=== PATIENT | female | born 1995 ===

== ENCOUNTER 2016-10-22 15:52 | Emergency (ER) | payer SELFPAY ==
[2016-10-22 16:28] VITALS: RESP 18; TEMP 98.5
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
--- NOTE | 2016-10-22 17:09 | RAD ---
PROCEDURE: Left Hand Radiographs. HISTORY: injury COMPARISON: None. FINDINGS: BONES: Acute fracture at the base of the proximal phalanx of the 4th finger extending to the articular surface of the metacarpophalangeal joint. JOINTS: Normal. No osteoarthritic changes. SOFT TISSUES: Soft tissue swelling seen at the 4th finger. OTHER FINDINGS: None. IMPRESSION: Acute fracture at the base of the proximal phalanx of the 4th finger.
[2016-10-22 17:23] VITALS: BP 108/70; PULSE 73; O2SAT 99
== END 2016-10-22 17:23 | disposition home or self-care (01) ==
LOC: C.ER 15:52
DX: S62.615A Displaced fracture of proximal phalanx of left ring finger, initial encounter for closed fracture (principal); Y09 Assault by unspecified means

== ENCOUNTER 2017-03-07 17:10 | Emergency (ER) | payer OTHER ==
[2017-03-07 17:57] VITALS: BMI 24.0
[2017-03-07 18:00] VITALS: BP 105/70; PULSE 84; RESP 16; TEMP 98.3; O2SAT 98
[2017-03-07 18:17] LABS: RBC URINE < 1 /hpf (0-3); URINE BACTERIA RARE (<OCC); URINE BILIRUBIN NEGATIVE (NEGATIVE); URINE BLOOD NEGATIVE (NEGATIVE); URINE COLOR Straw (YELLOW); URINE GLUCOSE (UA) NORMAL (Normal); URINE KETONE NEGATIVE (NEGATIVE); URINE LEUKOCYTE ESTERASE NEG Leu/uL (Negative); URINE PROTEIN NEGATIVE (NEGATIVE); URINE UROBILINOGEN NORMAL mg/dL (0.2-1.0); WBC URINE 1 /hpf (0-5)
[2017-03-07 19:22] LABS: BASO % 0.4 % (0.0-2.0); EOS % 0.2 % (0.0-4.0); HEMATOCRIT 38.1 % (34.0-47.0); LYMPH # 2.1 K/uL (1.0-4.3); LYMPH % 32.2 % (20.0-40.0); MEAN CELL VOLUME 94.3 fL (81.0-99.0); MEAN CORPUSCULAR HEMOGLOBIN 32.3 pg (27.0-31.0); MEAN CORPUSCULAR HGB CONC 34.2 g/dL (33.0-37.0); MEAN PLATELET VOLUME 8.3 fL (7.2-11.7); MONO # 0.5 K/uL (0.0-0.8); MONO % 8.4 % (0.0-10.0); NRBC % 0.1 % (0.0-2.0); WHITE BLOOD COUNT 6.4 K/uL (4.8-10.8)
[2017-03-07 19:37] LABS: ALB/GLOB RATIO 1.5 (1.0-2.1); ALKALINE PHOSPHATASE 69 U/L (38-126); ALT/SGPT 80 U/L (9-52); AST/SGOT 56 U/L (14-36); BILIRUBIN,TOTAL 1.3 mg/dL (0.2-1.3); BLOOD UREA NITROGEN 6 mg/dL (7-17); CALCIUM 8.6 mg/dl (8.6-10.4); CARBON DIOXIDE 24 mmol/L (22-30); CHLORIDE 101 mmol/L (98-107); GFR AFRICAN-AMERICAN > 60; GLUCOSE,RANDOM 78 mg/dL (65-105); POTASSIUM 3.6 mmol/L (3.6-5.2); SODIUM 131 mmol/L (132-148); TOTAL PROTEIN 7.2 g/dL (6.3-8.3)
--- NOTE | 2017-03-07 19:48 | C.PDOC ---
History Of Present Illness 21 year old female presents to the ED c/o lower abdominal pain that she describes as" pulling" that started yesterday. Patient's LMP was on February 03 lasted until Feb 07, was supposed to get her period on Mar 06 but she did not. Patient reports she felt the pain and decided to take home test which came back positive, has not seen her SECURITIES ANALYST yet. Patient denies nausea, vomit, diarrhea, dysuria, back pain. Time Seen by Provider: 03/07/17 18:19 Chief Complaint (Nursing): Female Genitourinary History Per: Patient History/Exam Limitations: no limitations Onset/Duration Of Symptoms: Hrs Current Symptoms Are (Timing): Still Present Quality Of Discomfort: Other (Pulling) Associated Symptoms: denies: Fever, Nausea, Vomiting, Back Pain Recent travel outside of the [place]: No Additional History Per: Patient Abnormal Vaginal Bleeding: No Last Menstral Period: 02/03/17 Past Medical History Reviewed: Historical Data, Nursing Documentation, Vital Signs Vital Signs: Last Vital Signs Temp 98.3 F 03/07/17 17:57 Pulse 84 03/07/17 17:57 Resp 16 03/07/17 17:57 BP 105/70 03/07/17 17:57 Pulse Ox 98 03/07/17 21:53 - Medical History PMH: No Chronic Diseases Surgical History: No Surg Hx Family History: States: Unknown Family Hx - Social History Hx Alcohol Use: No Hx Substance Use: No - Immunization History Hx Tetanus Toxoid Vaccination: No Hx Influenza Vaccination: No Hx Pneumococcal Vaccination: No Review Of Systems Constitutional: Negative for: Fever, Chills Cardiovascular: Negative for: Chest Pain Respiratory: Negative for: Cough, Shortness of Breath Gastrointestinal: Positive for: Abdominal Pain (Lower). Negative for: Nausea, Vomiting Genitourinary: Negative for: Dysuria, Vaginal Discharge, Vaginal Bleeding Musculoskeletal: Negative for: Back Pain Skin: Negative for: Rash Neurological: Negative for: Weakness, Numbness Physical Exam - Physical Exam Appears: Non-toxic, No Acute Distress Skin: Normal Color, Warm, Dry Head: Atraumatic, Normacephalic Oral Mucosa: Moist Neck: Normal ROM, Supple Chest: Symmetrical Cardiovascular: Rhythm Regular, No Murmur Respiratory: Normal Breath Sounds, No Rales, No Rhonchi, No Wheezing Gastrointestinal/Abdominal: Soft, Tenderness (Mild superpubic ), No Distention, No Guarding, No Rebound, Other (Mild pelvic tenderness) Back: No CVA Tenderness Extremity: Normal ROM, No Deformity, No Swelling Neurological/Psych: Oriented x3, Normal Speech, Normal Cognition Gait: Steady ED Course And Treatment - Laboratory Results Result Diagrams: 03/07/17 19:17 03/07/17 19:17 O2 Sat by Pulse Oximetry: 98 (On RA) Pulse Ox Interpretation: Normal - CT Scan/US Transvaginal US Other Rad Studies (CT/US): Interpreted By Me, Read By Radiologist, Radiology Report Reviewed CT/US Interpretation: IMPRESSION: No intrauterine gestation is identified on the current examination. Please correlate these findings with the serum beta- hCG, with short term. followup (and serial beta-hCG) recommended. Medical Decision Making Medical Decision Making: Plan: * Blood work ordered * UA ordered * Urine culture collected * OB transvaginal US ordered Re-evaluation : pt comfortable in ED, explained to return to ED in 2 days for repeat sono and blood work Disposition Counseled Patient/Family Regarding: Studies Performed, Diagnosis, Need For Followup, Rx Given - Disposition Referrals: [facility] [Outside] [facility] [Outside] Disposition: HOME/ ROUTINE Disposition Time: 22:17 Condition: STABLE Additional Instructions: Erendira un seguimiento en el servicio de urgencias en 2 rodriguez para deanna ecografa previa y repita la prueba de adalid BHCG. Ests en las primeras etapas del embarazo; nada se ve todava en el tero. Erendira deanna saud con oliva gyecologist para la atencin . Regrese a urgencias inmediatamente para cualquier dolor abdominal que empeore, mareos desmayos, sangrado vaginal o cualquier otra preocupacin. Follow up in the ED in 2 days for a prepeat sonogram and repeat BHCG blood test. You are in early stages of ; nothing is seen in the uterus yet. Make an appointment with your gyecologist for pre- care. Return to ER right away for any worsening abdominal pain, dizziness fainting, vaginal bleeding or any other concerns. Instructions: Abdominal Pain in (ED) Forms: [facility] (German), Gen Discharge Inst German - Clinical Impression Clinical Impression: Early stage of - PA / SIGNAL ENGINEER / Resident Statement MD/DO has reviewed & agrees with the documentation as recorded. - Scribe Statement The provider has reviewed the documentation as recorded by the Scribe Shyam Blake All medical record entries made by the Scribe were at my direction and personally dictated by me. I have reviewed the chart and agree that the record accurately reflects my personal performance of the history, physical exam, medical decision making, and the department course for this patient. I have also personally directed, reviewed, and agree with the discharge instructions and disposition.
--- NOTE | 2017-03-07 21:43 | US ---
EXAM: US Pelvis Complete, Transabdominal US Pelvis, Transvaginal CLINICAL HISTORY: 21 years old, female; Pain; Pelvic pain; Patient HX: Beta 1586.60; Additional info: Bilateral pelvic pain right more than left TECHNIQUE: Real-time transabdominal and transvaginal pelvic ultrasound (complete) with image documentation. Transvaginal imaging was used for better evaluation of the endometrium and adnexa. COMPARISON: No relevant prior studies available. FINDINGS: Uterus/cervix: Unremarkable in echogenicity and size measuring 10.1 x 4.9 x 5.7 cm. The endometrial stripe measures 11 mm. The cervix measures 3.3 cm, and is closed. No intrauterine gestation is identified. No myometrial mass. Right ovary: Unremarkable in echogenicity and size measuring 4.5 x 2.9 x 2.9 cm. No mass. Normal blood flow. Left ovary: Unremarkable in echogenicity and size measuring 3.2 x 2.1 x 2.0 cm. No mass. Normal blood flow. Free fluid: No free fluid. IMPRESSION: No intrauterine gestation is identified on the current examination. Please correlate these findings with the serum beta-hCG, with short term followup (and serial beta-hCG) recommended.
== END 2017-03-07 22:34 | disposition home or self-care (01) ==
LOC: C.ER 17:10
DX: O26.891 Other specified pregnancy related conditions, first trimester (principal); Z3A.00 Weeks of gestation of pregnancy not specified

== ENCOUNTER 2017-03-10 14:30 | Emergency (ER) | payer OTHER ==
[2017-03-10 14:30] VITALS: BMI 24.0
[2017-03-10 15:03] VITALS: RESP 18; O2SAT 100
--- NOTE | 2017-03-10 15:10 | C.PDOC ---
History Of Present Illness Marisel is a 21 year old who presents for repeat Beta-HCG and sonogram. Patient was seen here 2 days ago for abdominal pain, was found to be , but no gestational sac was identified. She denies any medical complaints at this time. No vomiting or vaginal bleeding. PMD: None provided Time Seen by Provider: 03/10/17 15:09 Chief Complaint (Nursing): Medical Clearance History Per: Patient History/Exam Limitations: no limitations Current Symptoms Are (Timing): Gone Reports Recently: Seen In ED Additional History Per: Prior Records Past Medical History Reviewed: Historical Data, Nursing Documentation, Vital Signs Vital Signs: Last Vital Signs Temp 98.1 F 03/10/17 17:20 Pulse 76 03/10/17 17:20 Resp 18 03/10/17 17:20 BP 112/64 03/10/17 17:20 Pulse Ox 100 03/10/17 17:25 - Medical History PMH: No Chronic Diseases Surgical History: No Surg Hx Family History: States: Unknown Family Hx - Social History Hx Alcohol Use: No Hx Substance Use: No - Immunization History Hx Tetanus Toxoid Vaccination: No Hx Influenza Vaccination: No Hx Pneumococcal Vaccination: No Review Of Systems Except As Marked, All Systems Reviewed And Found Negative. Gastrointestinal: Negative for: Abdominal Pain Genitourinary: Negative for: Vaginal Bleeding Physical Exam - Physical Exam Appears: Well, Non-toxic, No Acute Distress Skin: Normal Color, Warm, Dry Head: Atraumatic, Normacephalic Eye(s): bilateral: Normal Inspection, PERRL, EOMI Nose: Normal Neck: Normal, Normal ROM, Supple Cardiovascular: Rhythm Regular Respiratory: Normal Breath Sounds, No Accessory Muscle Use Gastrointestinal/Abdominal: Normal Exam, Soft, No Tenderness Extremity: Bilateral: Atraumatic, Normal Color And Temperature Neurological/Psych: Oriented x3, Normal Speech ED Course And Treatment O2 Sat by Pulse Oximetry: 100 (RA) Pulse Ox Interpretation: Normal Medical Decision Making Medical Decision Making: Time: 15:11 Initial Impression: 21 year old female here for repeat beta HCG and ultrasound Initial Plan: * Beta-HCG quantitative * Pending OB Transvaginal Ultrasound Repeat beta-HCG is 7636.70 Time: 16:13 US OB Transvaginal : FINDINGS: UTERUS: Measures 9.3 x 4.7 x 4.8 cm. Uses enlarged and appears anteverted without focal myometrial lesion appreciable grossly. No fibroid or other mass lesion seen. ENDOMETRIUM: Fluid collection is identified within the endometrial cavity measuring a mean diameter 0.7 cm within apparent associated decidual reaction. No pole yolk sac is identified within this fluid. This may represent an early viable intrauterine gestation of less than 5 weeks. This agrees with LMP derived gestational age in general. demise is the differential diagnosis. Clinically correlate further. CERVIX: A nabothian cyst is identified in the anterior cervix with the cervix measuring 3.5 cm. RIGHT OVARY: Measures 3.0 x 2.3 x 2.8 cm. No solid mass. Normal flow. LEFT OVARY: Measures 3.0 x 1.8 x 2.3 cm. No solid mass. Normal flow. FREE FLUID: No significant free fluid noted. OTHER FINDINGS: None. IMPRESSION: An intrauterine fluid collection is appreciate without yolk sac, and membrane or pole identified at this time. Based on mean sac diameter, this may represent early viable intrauterine gestation less than 5 weeks estimated gestational age. This is not proven and differential diagnosis is failure of gestation. Follow-up serial beta HCG analysis is recommended as well as 1 week follow-up pelvic ultrasound transvaginal. Please see discussion above. Disposition Counseled Patient/Family Regarding: Studies Performed, Diagnosis, Need For Followup, Rx Given - Disposition Referrals: [facility] [Outside] Disposition: HOME/ ROUTINE Disposition Time: 17:17 Condition: STABLE Additional Instructions: FOLLOW UP WITH YOUR THREAD SEPARATOR IN 1 WEEK FOR REPEAT BhCG AND SONOGRAM. IF ABDOMINAL PAIN, VAGINAL BLEEDING OR ANY CONCERNING SYMPTOMS DEVELOP RETURN TO ED. Prescriptions: Multivit/Folic Acid/I [ Plus] 1 tab PO DAILY #30 tab Instructions: First Trimester (ED) Forms: [employer] Connect (Syrian), Gen Discharge Inst Turkmen Print Language: SAMI - Clinical Impression Clinical Impression: Early stage of - PA / AIRPORT OPERATIONS OFFICER / Resident Statement MD/DO has reviewed & agrees with the documentation as recorded. - Scribe Statement The provider has reviewed the documentation as recorded by the Matilde Dixon All medical record entries made by the Venusibeliza were at my direction and personally dictated by me. I have reviewed the chart and agree that the record accurately reflects my personal performance of the history, physical exam, medical decision making, and the department course for this patient. I have also personally directed, reviewed, and agree with the discharge instructions and disposition.
--- NOTE | 2017-03-10 16:15 | US ---
HISTORY: ABDOMINAL PAIN ; last menstrual period is reported 02/03/2017 suggesting of 5 weeks 0 day estimated gestational age. COMPARISON: None available. TECHNIQUE: Transvaginal pelvic ultrasound was performed with longitudinal and transverse images submitted for interpretation. FINDINGS: UTERUS: Measures 9.3 x 4.7 x 4.8 cm. Uses enlarged and appears anteverted without focal myometrial lesion appreciable grossly. No fibroid or other mass lesion seen. ENDOMETRIUM: Fluid collection is identified within the endometrial cavity measuring a mean diameter 0.7 cm within apparent associated decidual reaction. No pole yolk sac is identified within this fluid. This may represent an early viable intrauterine gestation of less than 5 weeks. This agrees with LMP derived gestational age in general. demise is the differential diagnosis. Clinically correlate further. CERVIX: A nabothian cyst is identified in the anterior cervix with the cervix measuring 3.5 cm. RIGHT OVARY: Measures 3.0 x 2.3 x 2.8 cm. No solid mass. Normal flow. LEFT OVARY: Measures 3.0 x 1.8 x 2.3 cm. No solid mass. Normal flow. FREE FLUID: No significant free fluid noted. OTHER FINDINGS: None. IMPRESSION: An intrauterine fluid collection is appreciate without yolk sac, and membrane or pole identified at this time. Based on mean sac diameter, this may represent early viable intrauterine gestation less than 5 weeks estimated gestational age. This is not proven and differential diagnosis is failure of gestation. Follow-up serial beta HCG analysis is recommended as well as 1 week follow-up pelvic ultrasound transvaginal. Please see discussion above.
[2017-03-10 17:20] VITALS: BP 112/64; PULSE 76; TEMP 98.1
== END 2017-03-10 17:33 | disposition home or self-care (01) ==
LOC: C.ER 14:30
DX: O26.891 Other specified pregnancy related conditions, first trimester (principal); R10.9 Unspecified abdominal pain; Z3A.01 Less than 8 weeks gestation of pregnancy

== ENCOUNTER 2017-07-04 19:58 | Emergency (ER) | payer MEDICAID, OTHER ==
--- NOTE | 2017-07-04 20:23 | OBHP ---
Datetime: 07/04/2017 20:18 IP Adm Impression: , intrauterine IP Chief Complaint Other: vaginal discharge for 1week IP Admit Plan: Discharge home Admit Comment, IP Provider: at 21.4weeks came with c/o vaginal discharge with itching and irrta tiin x 1 week,no ctxs,vb,+fm obhx primi pmh den med pnv all nkda psh den soch de a/p at 21+weeks vaginitis dc home flagyl x 7 days terazol no sex po hy f/u in as schuled Pelvic Type - PN: Adequate Extremities - PN: Normal Abdomen - PN: Normal Back - PN: Normal Breast - PN: Normal Lungs - PN: Normal Heart - PN: Normal Thyroid - PN: Normal Neurologic - PN: Normal HEENT - PN: Normal General - PN: Normal FHR - Baseline A Provider: 140 Contraction Comments Provider: none Comments, ACOG Physical Exam: gravid,non ten sse clttage chesy disc,no cmt, yelowish doisc Vital Signs Provider: Reviewed; Within Normal Limits NICHD Variability Prov Fetus A: Moderate 6-25bpm Dilatation, Provider: 0 Effacement, Provider: 0 Station, Provider: -3 Genitourinary Exam: Normal DTRs - PN: Normal
--- NOTE | 2017-07-04 20:25 | OBDCSUM ---
Datetime: 07/04/2017 20:22 Discharged to, Provider: Home Follow up at, Provider: july 10 Follow up in weeks, Provider: clinic Disch Activity Restrictions: No sexual activity; Nothing in vagina - [place], tampons, douche Discharge Comment, Provider: dc home flagyl x 7 days terazol no sex po hy f/u in as schuled Discharge Diagnosis Prov Other: 21week vaginitis
[2017-07-05 12:06] VITALS: BP 115/62; PULSE 78; RESP 18; TEMP 98; O2SAT 99
== END 2017-07-04 21:00 | disposition home or self-care (01) ==
LOC: C.EROB 19:58
DX: O23.592 Infection of other part of genital tract in pregnancy, second trimester (principal); N76.0 Acute vaginitis; Z3A.21 21 weeks gestation of pregnancy

== ENCOUNTER 2017-11-14 20:29 | Emergency (ER) | payer MEDICAID, OTHER ==
[2017-11-14 20:48] VITALS: BMI 28.0
--- NOTE | 2017-11-14 21:14 | OBHP ---
Datetime: 11/14/2017 21:08 IP Adm Impression: Term, intrauterine IP Chief Complaint Other: vaginal spotting IP Admit Plan: Discharge home Admit Comment, IP Provider: at 40.4wek came with c/o spotting in the evening.pt had sex yesterd y,no ctxs, no lof+fm obhx primi pmgh den med pnv all nkda psh de soch den sse no blod ve ft/50/-3 a/p at 40+weeks false labor dc home labor given induction on 11/15/17 at 7 pm Pelvic Type - PN: Adequate Extremities - PN: Normal Abdomen - PN: Normal Back - PN: Normal Breast - PN: Normal Lungs - PN: Normal Heart - PN: Normal Thyroid - PN: Normal Neurologic - PN: Normal HEENT - PN: Normal General - PN: Normal FHR - Baseline A Provider: 130 Contraction Comments Provider: occ Vital Signs Provider: Reviewed; Within Normal Limits NICHD Variability Prov Fetus A: Moderate 6-25bpm NICHD Accel Fetus A IP Provider: 15X15 FHR Category Provider Fetus A: Category I Dilatation, Provider: ft Effacement, Provider: 50 Station, Provider: -3 Genitourinary Exam: Normal DTRs - PN: Normal
--- NOTE | 2017-11-14 21:16 | OBDCSUM ---
Datetime: 11/14/2017 21:12 Discharged to, Provider: Home Follow up at, Provider: Clinic Disch Instr Activity: Normal activity Disch Instr Diet: Regular Discharge Time: 11/14/2017 21:12 Follow up in weeks, Provider: clinic Disch Referrals: None Disch Activity Restrictions: No sexual activity; Nothing in vagina - [place], tampons, douche Discharge Comment, Provider: dc home labor given induction on 11/15/17 at 7 pm Discharge Diagnosis Prov Other: false labor 40week
[2017-11-15 01:26] VITALS: BP 120/64; PULSE 96; RESP 18; TEMP 98.5
== END 2017-11-14 21:19 | disposition home or self-care (01) ==
LOC: C.EROB 20:29
DX: O47.1 False labor at or after 37 completed weeks of gestation (principal); Z3A.40 40 weeks gestation of pregnancy

== ENCOUNTER 2017-11-15 07:14 | Inpatient (IN) | payer MEDICAID ==
[2017-11-14 20:48] VITALS: BMI 28.0
[2017-11-15] MEDS ORDERED: Lactated Ringer's 1,000 ML IV SCH (19:35)
[2017-11-15 20:54] LABS: BASO % 0.1 % (0.0-2.0); EOS % 0.2 % (0.0-4.0); HEMOGLOBIN 12.7 g/dL (11.0-16.0); LYMPH # 1.8 K/uL (1.0-4.3); LYMPH % 21.5 % (20.0-40.0); MEAN CELL VOLUME 96.7 fL (81.0-99.0); MEAN CORPUSCULAR HEMOGLOBIN 34.1 pg (27.0-31.0); MEAN CORPUSCULAR HGB CONC 35.3 g/dL (33.0-37.0); MEAN PLATELET VOLUME 9.5 fL (7.2-11.7); MONO # 0.6 K/uL (0.0-0.8); MONO % 7.6 % (0.0-10.0); NEUT # 5.8 K/uL (1.8-7.0); NEUT % 70.6 % (50.0-75.0); NRBC % 0.1 % (0.0-2.0); RBC 3.73 Mil/uL (3.80-5.20); RED CELL DISTRIBUTION WIDTH 13.7 % (11.5-14.5); WHITE BLOOD COUNT 8.1 K/uL (4.8-10.8)
[2017-11-15 20:59] LABS: SQUAMOUS EPITHIAL 1 /hpf (0-5); URINE BACTERIA RARE (<OCC); URINE BILIRUBIN NEGATIVE (NEGATIVE); URINE BLOOD NEGATIVE (NEGATIVE); URINE CLARITY Clear (Clear); URINE COLOR Yellow (YELLOW); URINE GLUCOSE (UA) NORMAL (Normal); URINE LEUKOCYTE ESTERASE NEG Leu/uL (Negative); URINE PROTEIN NEGATIVE (NEGATIVE); URINE UROBILINOGEN NORMAL mg/dL (0.2-1.0)
--- NOTE | 2017-11-15 20:59 | OBADHP ---
Datetime: 11/15/2017 20:44 IP Admit Plan Other: cervical ripening Admit Comment, IP Provider: Lubna seen and evaluated at approximately 1945 hours 22 y.o. , LMPunsure, FADUMO 11/10/17, EGA 40w 5d by sono 04/30/17 at 12w 2d, for IOL. (+) AFM; dei es vaginal bleeidng, LOF. (+) B-H Ctx since "eight months" with la occasional vaginal pressure. Pre thaddeus care: [facility] - [facility]O; GBS (+) P Ob: Primip P INVESTIGATIVE RESEARCH SPECIALIST: 11 x monthly x 5. Denies H/O STIs, abnormal Pap PMH: 2013, dengue fever - hospitalized x 14 days; received blood transfusion (Eliud Avalos) PSH: denies NKDA Meds: PNV - last took in the eveing 11/14 Soc Hx: denies tobacco, illicit drug or EtOH use. Lives with FOB; together x 1 1/2 years. Fam Hx: Mother alive 51 y.o. Father alive 59 y.o., both, nomed issues. P.E.: as above. WD in NAD. Awake, alert, oriented to time, person and place. Pleasant and cooperat kassie. Accompanied by FOB and her mother Assessment: 22 y.o. P0, 40w 5d, for IOL; cervical dilatation has commenced. GBS (+); for penicill in. Category 1 tracing. Clinically stable Plan: 1) Admit 2) NPO 3) Admission labs 4) Continuous EFM 5) IVFs 6) Cytotec p.o. x 2 doses 7) Penicillin 8) Anticipate vaginal delivery Pelvic Type - PN: Adequate Extremities - PN: Normal Abdomen - PN: Normal Back - PN: Normal Breast - PN: Normal Lungs - PN: Normal Heart - PN: Normal Thyroid - PN: Not Done Neurologic - PN: Normal HEENT - PN: Normal General - PN: Normal Weight - Estimated: 3405 Presentation-Admit: Vertex FHR - Baseline A Provider: 135 Contraction Comments Provider: infrequent Comments, ACOG Physical Exam: Abdomen: Gravid. Soft. Non tender. Fundal height 37 cm All other systems reviewed and are negative Gestation - Est Wks by US: 40w 5d Vital Signs Provider: Reviewed; Within Normal Limits IP Chief Complaint: Scheduled induction of labor NICHD Variability Prov Fetus A: Moderate 6-25bpm NICHD Accel Fetus A IP Provider: 15X15 FHR Category Provider Fetus A: Category I NICHD Decel Fetus A IP Provider: None Dilatation, Provider: 2-3 Effacement, Provider: 40 Genitourinary Exam: Normal DTRs - PN: Not Done EGA AdmitDate IP: 40.5 IP Adm Impression: Postterm, intrauterine ; No Active Labor; Intact Membranes IP Admit Plan: Admit to unit; Initiate labor induction protocol Datetime: 11/14/2017 21:08 IP Chief Complaint Other: vaginal spotting Station, Provider: -3
[2017-11-15 21:07] LABS: ALB/GLOB RATIO 1.3 (1.0-2.1); ALBUMIN 3.6 g/dL (3.5-5.0); ALT/SGPT 29 U/L (9-52); AST/SGOT 24 U/L (14-36); BLOOD UREA NITROGEN 8 mg/dL (7-17); CALCIUM 9.5 mg/dl (8.6-10.4); GFR AFRICAN-AMERICAN > 60; GFR NON-AFRICAN AMERICAN > 60
--- NOTE | 2017-11-16 00:28 | OBPN ---
Datetime: 11/16/2017 00:23 IP Progress Plan Other: cervical ripening IP Procedures: Sterile Vag Exam IP Progress Plan: Continue present management Contraction Comments Provider: irregular FHR - Baseline A Provider: 130 IP Progress Note Comment: Patient resting comfortably, not feeling contractioins. (+) FM; denies LOF ., VB Cervical exam - as above. Plan: 1) Cytotec 50mg p.o x 1 now 2) Continue present management Vital Signs Provider: Reviewed; Within Normal Limits NICHD Accel Fetus A IP Provider: 15X15 FHR Category Provider Fetus A: Category I NICHD Variability Prov Fetus A: Moderate 6-25bpm Dilatation, Provider: 4 Effacement, Provider: 50 Station, Provider: -3 NICHD Decel Fetus A IP Provider: None Datetime: 11/15/2017 20:44 Gestation - Est Wks by US: 40w 5d Weight - Estimated: 3405 Presentation-Admit: Vertex
[2017-11-16] MEDS ORDERED: Penicillin G 5 Million Unit Vial IVPB ONE ×2 (00:29)
[2017-11-16] MEDS ORDERED: Oxytocin 30 UNIT 30 UNITS/500 ML BAG IV SCH (07:45)
--- NOTE | 2017-11-16 12:43 | OBPN ---
Datetime: 11/16/2017 09:45 IP Progress Impression: Reassuring heart rate IP Informed Consent Obtain: Vaginal Delivery IP Progress Plan: Continue present management; Augmentation Membranes, Provider: Intact Contraction Comments Provider: Irregular and mild FHR - Baseline A Provider: 120 IP Progress Note Comment: 22 yo female with an IUP at 40 5/7 weeks Admitted for IOL for Postdates S/P Cytotec doses x 2 over nite FHT's reactie and Reassuring Irregular contractions and mild Will start Pitocin at this time Epidural Anesthesia discussed with the patient and she verbalized understanding and will request w hen time for it Anticipate a vaginal delivery Vital Signs Provider: Reviewed; Within Normal Limits NICHD Accel Fetus A IP Provider: 10X10 FHR Category Provider Fetus A: Category I NICHD Variability Prov Fetus A: Moderate 6-25bpm Dilatation, Provider: 2-3 Effacement, Provider: 50 Station, Provider: -3 NICHD Decel Fetus A IP Provider: None
[2017-11-16] MEDS ORDERED: Oxytocin 30 UNIT 30 UNITS/500 ML BAG IV ONE ×2 (15:09→21:38)
[2017-11-16] MEDS ORDERED: Bupivacaine HCl/FentaNYL Cit 100 ML EPI ONE (17:03)
--- NOTE | 2017-11-16 18:28 | OBPN ---
Datetime: 11/16/2017 15:15 IP Progress Impression: Normal progression of labor; Reassuring heart rate IP Informed Consent Obtain: Vaginal Delivery IP Procedures: Artificial ROM; Sterile Vag Exam; Epidural Placement IP Progress Plan: Continue present management; Augmentation; Anticipate Vaginal Delivery Membranes, Provider: Ruptured Amniotic Fluid Color, Provider: Clear Contraction Comments Provider: Q 3-6 minutes with Pitoci at 12 mU/min FHR - Baseline A Provider: 130 Gestation - Est Wks by US: 40 6/7 weeks Presentation-Admit: Vertex IP Progress Note Comment: FHT's reassuring Pitocin at 12 mU/min and Cx's still irregular AROM performed with return of very scanty clear fluid VSS, Afebrile Requested an Epidural and Anesthesia aware Continue increasing Pitocin to a better labor pattern Hope for a vagial delivery Vital Signs Provider: Reviewed NICHD Accel Fetus A IP Provider: 15X15 FHR Category Provider Fetus A: Category I NICHD Variability Prov Fetus A: Moderate 6-25bpm Dilatation, Provider: 4 Effacement, Provider: 70 Station, Provider: -2 NICHD Decel Fetus A IP Provider: Variable
--- NOTE | 2017-11-16 18:38 | OBPN ---
Datetime: 11/16/2017 18:28 IP Progress Impression Other: Slow progression of labor IP Progress Impression: Reassuring heart rate; Rupture of membranes IP Informed Consent Obtain: Vaginal Delivery IP Procedures: Intrauterine Pressure Catheter; Scalp Electrode; Sterile Vag Exam IP Progress Plan: Continue present management; Induction; Anticipate Vaginal Delivery Membranes, Provider: Ruptured Contraction Comments Provider: Q 2-3 minutes with Pitocin at 16 mU/min FHR - Baseline A Provider: 120 Gestation - Est Wks by US: 40 6/7 weeks Presentation-Admit: Vertex IP Progress Note Comment: ? variables vs Late Deccelerations on external monitor ISL and IUPC placed and pt in LLP and mild variables noted UC's Q 3-4 minutes and about 40-50 mmhg with Pitocin at 16 mU/min Will continue increasing Pitocin to a better labor pattern VSS/Afebrile Hope for a vaginal delivery Vital Signs Provider: Reviewed; Within Normal Limits NICHD Accel Fetus A IP Provider: 10X10 FHR Category Provider Fetus A: Category I NICHD Variability Prov Fetus A: Moderate 6-25bpm Dilatation, Provider: 5 Effacement, Provider: 100 Station, Provider: -1 NICHD Decel Fetus A IP Provider: None
[2017-11-16] MEDS ORDERED: Oxycodone/Acetaminophen 5/325 mg Tab PO PRN ×2 (21:38)
--- NOTE | 2017-11-16 21:48 | OBDS ---
DELIVERY PERSONNEL Delivery Doctor: Screllen Nurse: Kierra Mahmood [place] Captain: Valorie Dennis RN Anesthesiologist: Makayla Plascencia MD MATERNAL INFORMATION Delivery Anesthesia: Epidural Medications in Delivery: PITOCIN Estimated Blood Loss (ml): 200 Maternal Complications: Other Other Maternal Complications: Late Meconium RN Comments: LIVE BABY GIRL Provider Comments: of a viable Female from GLEN position and over an intact perineum. Apg ars 9_9 at 1 and 5 minutes. BW 6lbs, 5oz, Meconium stained placenta and sent to Pathology Cord blood and cord pH also sent EBL 200 mls No complictions Pt and both tolerted the procedure well and remained in LDR in S _ S Condition. LABOR SUMMARY EDC: 11/10/2017 00:00 No. Babies in Womb: 1 Attempted: No Labor Anesthesia: Epidural LABOR INFORMATION Reason for Induction: Postterm Onset of Labor: 11/16/2017 15:04 Complete Dilatation: 11/16/2017 19:46 Cervical Ripening Agents: Cytotec @ (Annotations: 50mcg PO) Oxytocin: Augmentation Group B Beta Strep: Positive Antibiotics # of Doses: 5 Antibiotics Time of Last Dose: 1654 Steroids Given: None Reason Steroids Not Administered: Not Applicable MEMBRANES Membranes Rupture Method: Artificial Rupture of Membranes: 11/16/2017 15:15 Length of Rupture (hrs): 5.48 Amniotic Fluid Color: Clear Amniotic Fluid Amount: Scant Amniotic Fluid Odor: Normal STAGES OF LABOR Stage 1 hrs: 4 Stage 1 min: 42 Stage 2 hrs: 0 Stage 2 min: 58 Stage 3 hrs: 0 Stage 3 min: 7 Total Time in Labor hrs: 5 Total Time in Labor min: 47 VAGINAL DELIVERY Episiotomy: None Laceration Extension: N/A Laceration Type: None Initial Vag Sponge Count: 10 Final Vag Sponge Count: 10 Initial Vag Sharps Count: 0 Final Vag Sharps Count: 0 Sponge Count Correct: Yes; Vaginal Sweep Performed Sharps Count Correct: Yes BABY A INFORMATION Infant Delivery Date/Time: 11/16/2017 20:44 Method of Delivery: Vaginal Born in Route : No : N/A Forceps: N/A Vacuum Extraction: N/A Shoulder Dystocia : No SHOULDER DYSTOCIA BABY A Delivery Date/Time: 11/16/2017 20:44 PRESENTATION/POSITION BABY A Presentation: Cephalic Cephalic Presentation: Vertex Vertex Position: Right Occipital Anterior Breech Presentation: N/A PLACENTA INFORMATION BABY A Placenta Delivery Time : 11/16/2017 20:51 Placenta Method of Delivery: Spontaneous Placenta Status: Delivered SCORES BABY A Heart Rate 1 min: >100 bpm Resp Effort 1 min: Good Cry Reflex Irritability 1 min: Cough or Sneeze or Pulls Away Muscle Tone 1 min: Active Motion Color 1 min: Body [place], Extremities Blue Resuscitation Effort 1 min: Tactile Stimulation SCORE 1 MIN: 9 Heart Rate 5 min: >100 bpm Resp Effort 5 min: Good Cry Reflex Irritability 5 min: Cough or Sneeze or Pulls Away Muscle Tone 5 min: Active Motion Color 5 min: Body [place], Extremities Blue Resuscitation Effort 5 min: Tactile Stimulation SCORE 5 MIN: 9 INFANT INFORMATION BABY A Gestational Age at Delivery: 40.6 Gestational Status: Term Outcome : Liveborn Condition : Stable Infant Sex: Female IDENTIFICATION/MEDS BABY A ID Band Number: [id number] ID Band Location: Left Leg; Left Arm Sensor Applied: Yes Sensor Number: [id number] Sensor Location : Cord Clamp Vitamin K Given : Aquamephyton 1 mg IM; Left Thigh Erythromycin Given: Given Both Eyes WEIGHT/LENGTH BABY A Birthweight (gms): 2875 Infant Weight (lb): 6 Weight (oz): 5 Length Inches: 19.00 Infant Length cms: 48.3 CORD INFORMATION BABY A No. Cord Vessels: 3 Cord Blood Taken: Yes Suction: Mouth ASSESSMENT BABY A Infant Complications: None Physical Findings at Delivery: Within Normal Limits Respirations: Appears Normal Pad Extractor Tender/ALS Called : No Infant Care By: TRINIDAD NINO Transferred To: Remains with Mother
--- NOTE | 2017-11-17 07:47 | OBPPN ---
Datetime: 11/16/2017 15:15 PP Pain Prov: Within normal limits PP Nausea Prov: Denies PP Flatus Prov: Yes PP BM Prov: No PP Breasts Prov: Normal PP Heart Prov: Normal PP Lungs Prov: Normal PP Abdomen/Uterus Prov: Normal PP Lochia Prov: Normal PP Vulva/Perineum Prov: Normal PP CVA Tenderness Prov: Normal PP Extremities Prov: Normal PP C/S Incision Prov: Not Applicable PP Progress Prov: Normal PP Impression Prov: Normal progression PP Plan Prov: Continue present management PP Progress Note Prov: pt seen and examiend adn reprots pain controlled with medication. pt is ambul ating, voidng passing flatus, tolerating regular diet. pt denies any fevers, chills, nause, vomiting, cp, sob, bowel or bladder complaints. Pt is breast feeding and denies any feelings of sadness or dep ression. VSS PE: GEN NAD AAO x 3 BREAST: NT, Non engorged b/l CVS:RRR< +S1/S2 ABS: Soft, NT, nd , no guarding no rebound tenderness no rigidity, +BS FUNDUS: Firm at level of umbilicus VE: minimal lochia, non foul smelling EXT: negative homans sign, no calf tendeness A/P s/p PPD #1 doing well f/u am labs pain managment encourage breast feedign adn ambulation IP PP Procedures: None Vital Signs Provider PP: Reviewed; Within Normal Limits
[2017-11-17 08:12] LABS: BASO % 0.2 % (0.0-2.0); EOS % 0.1 % (0.0-4.0); HEMOGLOBIN 12.3 g/dL (11.0-16.0); LYMPH # 1.6 K/uL (1.0-4.3); LYMPH % 16.9 % (20.0-40.0); MEAN CELL VOLUME 96.7 fL (81.0-99.0); MEAN CORPUSCULAR HGB CONC 35.2 g/dL (33.0-37.0); MONO # 0.7 K/uL (0.0-0.8); MONO % 7.2 % (0.0-10.0); NEUT # 7.3 K/uL (1.8-7.0); NEUT % 75.6 % (50.0-75.0); RBC 3.62 Mil/uL (3.80-5.20); RED CELL DISTRIBUTION WIDTH 13.3 % (11.5-14.5); WHITE BLOOD COUNT 9.6 K/uL (4.8-10.8)
[2017-11-17] MEDS: Multiple Vitamins Tab PO SCH (09:39)
--- NOTE | 2017-11-18 08:42 | OBPPN ---
Datetime: 11/18/2017 08:40 PP Pain Prov: Within normal limits PP Nausea Prov: Denies PP Flatus Prov: Yes PP Breasts Prov: Normal PP Heart Prov: Normal PP Lungs Prov: Normal PP Abdomen/Uterus Prov: Normal PP Lochia Prov: Normal PP Vulva/Perineum Prov: Normal PP CVA Tenderness Prov: Normal PP Extremities Prov: Normal PP C/S Incision Prov: Not Applicable PP Progress Prov: Normal PP Impression Prov: Normal progression PP Plan Prov: Continue present management; Discharge PP Progress Note Prov: pt seen and examiend adn reprots pain controlled with medication. pt is ambul ating, voidng passing flatus, tolerating regular diet. pt denies any fevers, chills, nause, vomiting, cp, sob, bowel or bladder complaints. Pt is bottle feeding and denies any feelings of sadness or dep ression. VSS PE: GEN NAD AAO x 3 BREAST: NT, Non engorged b/l CVS:RRR< +S1/S2 ABS: Soft, NT, nd , no guarding no rebound tenderness no rigidity, +BS FUNDUS: Firm below level of umbilicus VE: minimal lochia, non foul smelling EXT: negative homans sign, no calf tendeness A/P s/p PPD #2 doing well dc home RTO 6 weeks Vital Signs Provider PP: Reviewed; Within Normal Limits
--- NOTE | 2017-11-18 08:44 | OBDCSUM ---
Datetime: 11/18/2017 07:54 Discharged to, Provider: Home Follow up at, Provider: NIR[facility] Disch Instr Activity: May Shower Disch Instr Diet: Regular Discharge Diet restrict Prov: none Discharge Diagnosis, Provider: Term Delivered Discharge Time: 11/18/2017 11:00 Follow up in weeks, Provider: 6 weeks Disch Referrals: None Disch Activity Restrictions: Minimize stair-climbing; No sexual activity; Nothing in vagina - Interc ourse, tampons, douche Contraception after Delivery: Not Planning to Use
[2017-11-18] MEDS: Multiple Vitamins Tab PO SCH (09:09)
[2017-11-19 01:15] VITALS: BP 84/53; PULSE 75; RESP 20; TEMP 98; O2SAT 100
== END 2017-11-18 08:46 | disposition home or self-care (01) | DRG 373 ==
LOC: C.4D 19:11 → C.4M 11-16 23:00
PROVIDERS: ADMIT Obstetrics & Gynecology; ATTEND Obstetrics & Gynecology
PROC: 10E0XZZ Delivery of Products of Conception, External Approach (ICD-10-PCS; principal; 2017-11-16)
PROC: 3E0P7VZ Introduction of Hormone into Female Reproductive, Via Natural or Artificial Opening (ICD-10-PCS; 2017-11-16)
PROC: 10907ZC Drainage of Amniotic Fluid, Therapeutic from Products of Conception, Via Natural or Artificial Opening (ICD-10-PCS; 2017-11-16)
DX: O48.0 Post-term pregnancy (principal); O99.824 Streptococcus B carrier state complicating childbirth; O77.0 Labor and delivery complicated by meconium in amniotic fluid; Z3A.40 40 weeks gestation of pregnancy; Z37.0 Single live birth